=== PATIENT | male | born 1960 | race African-American/Black ===

== ENCOUNTER 2019-10-28 10:55 | Emergency (ER) | payer MEDICAID ==
[~2019-10-28] VITALS: Ht 175.3 cm; Wt 78.0 kg
[2019-10-28] MEDS ORDERED: HYDROCODONE/ACETAMINOPHEN 5/325MG TABLET PO ONE (16:00)
[2019-10-28 17:13] VITALS: BP 140/70
== END 2019-10-28 17:15 | disposition home or self-care (01) ==
LOC: ER 11:34
DX: M25.562 Pain in left knee (principal); R03.0 Elevated blood-pressure reading, without diagnosis of hypertension
CPT/HCPCS: 73560; 99283